=== PATIENT | male | born 1980 | race Caucasian/White ===

== ENCOUNTER 2018-01-03 09:44 | Emergency (ER) | payer OTHER, SELFPAY ==
[2018-01-03 09:45] VITALS: BP 157/73; PULSE 72; RESP 16; TEMP 35.6; BMI 46.8
--- NOTE | 2018-01-03 10:00 | ED.DCSUM_ITS ---
- ER Visit Summary Date of Service: 01/03/18 Chief Complaint: Flank pain History of Present Illness: The patient is a 37 M who presents with right-sided flank pain. Patient states he has a history of kidney stones. Is seen Dr. Pisano in the past. 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 He states that he has had several waves of pain but the pain currently is tolerable. Notes nausea but no vomiting. He describes the pain as sharp stabbing and very similar to prior any stones. His never required surgery to pass the stones. No recent fevers. No known kidney disease. Physical Examination: Afebrile vital signs are stable Gen: Well-nourished well-developed Head: Normocephalic atraumatic Eyes: Perrl EOMI ENT: TMs clear no rhinorrhea moist mucous membranes Neck: Supple no lymphadenopathy no JVD nontender CVS: Regular rate rhythm no murmurs normal S1-S2 Respiratory: No distress clear to auscultation bilaterally chest nontender Abdomen: Soft nontender nondistended normal bowel sounds no masses Back: Nontender Extremity: Nontender no edema Skin: Normal color no rash Neuro: alert orientated ?3 CN II-XII intact normal strength sensation reflexes gait cerebellar Psych: Normal affect normal mood Test Results: CT of the abdomen pelvis without contrast and a urinalysis was obtained. Demonstrated a stone most likely in the bladder as the patient is pain-free. Incidental findings were discussed with the patient such as cholelithiasis and pulmonary nodule. Emergency Department Course and Treatment: Patient received Toradol. The patient will be referred to primary care for follow-up on the incidental findings. Impression: 1. Right ureterolithiasis with renal colic 2. Cholelithiasis 3. Pulmonary nodule This note was generated with [employer] dictation software. It may contain incorrect words, spelling, and punctuation that were not noted in review of the chart prior to signing ED Disposition - Plan for ED Patient: Disposition: Home or Assisted Living Chief Complaint: Flank Pain Instructions: ED Stone Renal Passed, ED Nodule Solitary Pulmonary Referrals: Devin Thompson DO [Primary Care Provider] - 1-2 Weeks
[2018-01-03] MEDS: Ketorolac 30 MG/ML Syringe IV (10:21)
--- NOTE | 2018-01-03 10:26 | CT_ITS ---
STUDY: CT ABDOMEN AND PELVIS WITHOUT CONTRAST REASON FOR EXAM: Male, 37 years old. Right flank pain. History of kidney stones. RADIATION DOSAGE (If Supplied By Facility): CTDIvol = ( 34.45 ) mGy, DLP = ( 1979.87 ) mGycm TECHNIQUE: Transaxial images were obtained from the dome of the diaphragm to the symphysis pubis without oral contrast, and without intravenous contrast. Sagittal and coronal images were reconstructed. Individualized dose optimization techniques were used for this CT. COMPARISON: March 16, 2014. FINDINGS: There is an incompletely imaged, 2 mm, noncalcified nodule within the right lateral lung base seen best currently on sequence 2, image 1. The visualized portions of the heart are within normal limits. There is diffuse decreased hepatic attenuation without CT evident mass or cyst. There is a 5 mm calculi within the dependent gallbladder lumen. There is no para cholecystic fluid. There is no gallbladder wall thickening. Intrahepatic and extra hepatic bile ducts appear unremarkable. Normal spleen. Normal pancreas. Normal bilateral adrenal glands. There are 2, less than 2 mm calculi within the collecting system of the right renal lower pole. There are also 2 punctate calculi both measuring less than 2 mm within the collecting system of the left renal lower pole. There is no hydronephrosis. There is no perinephric stranding or inflammatory change. There is a 2.7 mm calculi within the right posterior urinary bladder versus within the right UVJ seen best on sequence 2, image 174. Thick walled urinary bladder diffusely is most likely real estate representative of artifact of nondistention. There is no hydroureter. Normal visualized stomach. Normal small intestine. Normal colon. The appendix is visualized and appears normal. Normal abdominal aorta. Normal inferior vena cava. Normal retroperitoneum. Normal abdominal wall. Normal osseous structures. CT/Abdomen/Pelvis without Cont IMPRESSION: Bilateral nonobstructing nephrolithiasis. Nonspecific, 2 mm noncalcified nodule within the right lower lobe. Recommend follow-up in accordance with Fleischner Society recommendations and criteria. 2.7 mm calculi within the proximal urinary bladder versus within the distalmost right UVJ, nonobstructing. Diffuse urinary bladder wall thickening, likely real estate representative of artifact of nondistention. Cholelithiasis without CT evidence of cholecystitis. Calcified mesenteric lymph node seen on sequence 2, image 148. This finding is usually of no clinical concern. Electronically Signed: Alfonso Mack MD at 11:10 EDT , Service support ,
[2018-01-03 10:38] LABS: Bacteria 0 SEEN /hpf (None Seen)
[2018-01-03 10:44] LABS: Color, Urine Yellow (Yellow); Glucose, Dipstick 250 mg/dl (Normal); Ketone-Dipstick Negative (Negative); Leukocyte Esterase-Dipstick 25 /ul (Negative); Nitrite-Dipstick Negative (Negative); Occult Blood-Urine 250 /ul (Negative); Protein-Dipstick 30 mg/dl (Negative); Urine Bilirubin Dipstick Negative (Negative); Urine Clarity Clear (Clear); Urine Urobilinogen Normal (Normal)
[2018-01-03 10:57] LABS: Red Blood Cells-Urine 5-10 SEEN /hpf (0-5); White Blood Cells 0-5 SEEN /hpf (0-5)
[2018-01-03 10:58] LABS: Mucous, Urine 3+ /hpf (<or=2+); Squamous Epithelial Cells - UA 0-5 SEEN /hpf (0-5)
[2018-01-03 11:30] VITALS: BP 127/68; PULSE 60; RESP 18; O2SAT 96
== END 2018-01-03 11:32 | disposition home or self-care (01) ==
PROVIDERS: Emergency Provider Emergency Medicine; Family Provider Student in an Organized Health Care Education/Training Program; PCP Student in an Organized Health Care Education/Training Program
DX: N20.2 Calculus of kidney with calculus of ureter (principal); K80.20 Calculus of gallbladder without cholecystitis without obstruction; R91.1 Solitary pulmonary nodule; Z87.442 Personal history of urinary calculi
CPT/HCPCS: 74176; 81001; 96374; 99283; A4216

== ENCOUNTER 2018-10-19 20:04 | Emergency (ER) | payer OTHER, SELFPAY ==
[2018-10-19 20:05] VITALS: BP 163/90; PULSE 88; RESP 16; TEMP 36.6; O2SAT 96; BMI 48.1
[2018-10-19 20:19] VITALS: BP 156/75; PULSE 81; RESP 15; O2SAT 95
--- NOTE | 2018-10-19 20:23 | CT_ITS ---
STUDY: CT FACIAL BONES WITHOUT CONTRAST REASON FOR EXAM: Male, 38 years old. Fall. Bruising. RADIATION DOSAGE (If Supplied By Facility): CTDIvol = ( 29.38 ) mGy, DLP = ( 642.95 ) mGycm TECHNIQUE: The patient was scanned in a multi detector CT scanner. Sagittal and coronal images were reconstructed. Individualized dose optimization techniques were used for this CT. COMPARISON: None. FINDINGS: Nonspecific soft tissue swelling is seen of the left face and around the left orbit. No focal soft tissue hematoma is seen. Normal orbital cruz and orbital contents. Normal nasal bones and anterior nasal spine. Normal facial bones. There is no demonstrated fracture. Normal visualized paranasal sinuses. CT/Sinus/Facial Bone IMPRESSION: No facial fractures are seen. Electronically Signed: Demond Sexton MD at 21:47 EST , Service support ,
--- NOTE | 2018-10-19 20:23 | EKG12_ITS ---
Test Reason : SYNCOPE Blood Pressure : / mmHG Vent. Rate : 086 BPM Atrial Rate : 086 BPM P-R Int : 136 ms QRS Dur : 112 ms QT Int : 408 ms P-R-T Axes : 057 -13 068 degrees QTc Int : 488 ms Normal sinus rhythm with sinus arrhythmia Rwspe-Wzerzsksa-Cxulm Abnormal ECG Confirmed by DESIREE RAMOS, SHERICE ([id number]), greeting card editor ETHEL HANSEN ([id number]) on 10/22/2018 8:23:57 AM Referred By: ABELARDO Confirmed By:SHERICE RAMÍREZ MD
--- NOTE | 2018-10-19 20:23 | CT_ITS ---
STUDY: CT BRAIN WITHOUT CONTRAST REASON FOR EXAM: Male, 38 years old. Fall. Bruising. RADIATION DOSAGE (If Supplied By Facility): CTDIvol = ( 44.99 ) mGy, DLP = ( 812.98 ) mGycm TECHNIQUE: Transaxial CT imaging of the brain was performed without administration of intravenous contrast material. Individualized dose optimization techniques were used for this CT. COMPARISON: None. FINDINGS: Normal soft tissue structures. Normal calvarium. Normal size ventricles and extra-axial spaces for the patient's age. Normal white matter tracts of the cerebral hemispheres. Normal basal ganglia and thalami. Normal brainstem. Normal cerebellum. There is no intracranial hemorrhage. There are no findings of an acute ischemic infarction. Normal visualized paranasal sinuses. CT/Brain/Head without Contrast IMPRESSION: Normal unenhanced CT scan of the brain. Electronically Signed: Demond Sexton MD at 21:44 EST , Service support ,
--- NOTE | 2018-10-19 20:23 | RAD_ITS ---
STUDY: X-RAY CHEST REASON FOR EXAM: Male, 38 years old. Chest pain and cough TECHNIQUE: Single AP portable view of the chest. COMPARISON: None. FINDINGS: The lungs are clear and expanded. There is no demonstrated pleural abnormality. Normal size heart. Normal mediastinum and avinash. Normal visualized pulmonary arteries. Normal visualized aortic arch and descending thoracic aorta. Normal visualized thoracic spine. Normal visualized ribs, clavicles, and shoulders. There is no demonstrated abnormality of the visualized soft tissue structures of the upper abdomen. RAD/Chest 1 View (Portable) IMPRESSION: Normal x-ray examination of the chest. Electronically Signed: Demond Sexton MD at 21:36 EST , Service support ,
[2018-10-19 20:34] VITALS: O2SAT 94
[2018-10-19 20:52] LABS: Absolute Lymphocyte Count 1.08 X10^3/ul (0.83-4.51); Absolute Neutrophil Count 7.9 X10^3/uL (2.0-7.7); Basophil# 0.05 X10^3/uL; Basophil% 0.5 % (0-1); Eosinophil# 0.07 X10^3/uL; Eosinophils% 0.7 % (0-5); Hematocrit 41.5 % (40-54); Hemoglobin 14.4 g/dl (13.0-16.5); Lymphocyte # 1.08 X10^3/ul (4.0); Lymphocyte % 11.3 % (19-41); Mean Corp Hgb Conc 34.7 g/gl (32-36); Mean Corpuscular Hgb 29.2 pg (27.0-32.0); Mean Corpuscular Volume 84.2 fL (80-94); Mean Platelet Vol. 9.7 fl (6.2-12.0); Monocyte% 4.2 % (0-10); Neutrophil # 7.93 X10^3/uL (2.7-7.7); Neutrophil % 82.9 % (47-70); POSITIVE COUNT NO; POSITIVE DIFFERENTIAL NO; POSITIVE MORPHOLOGY NO; Platelet Count 290 K/mm3 (150-450); RBC Distribution Width CV 12.7 % (11.6-14.6); RBC Distribution Width SD 38.7 fl (35.1-43.9); Red Blood Count 4.93 M/mm3 (4.6-6.2); White Blood Count 9.6 K/mm3 (4.4-11.0)
[2018-10-19 21:06] LABS: Anion Gap 9 (5-15); BUN 11 mg/dL (7-18); BUN/Creat Ratio 10.2 RATIO (10-20); Calcium,Total 8.4 mg/dL (8.5-10.1); Chloride 103 mmol/L (98-107); Creatinine, Serum 1.08 mg/dL (0.70-1.30); EST Glomerular Filtration Rate 80 mL/min (>60); Est Glom Filt Rate - Afr Amer 97 mL/min (>60); Estimated Creatinine Clearance 102.75 ml/min; Glucose 313 mg/dL (74-106); Potassium 4.2 mmol/L (3.5-5.1); Sodium Level 135 mmol/L (136-145)
[2018-10-19 21:47] VITALS: BP 158/97; PULSE 78; RESP 14; O2SAT 95
[2018-10-19 22:21] VITALS: BP 154/96; PULSE 68; RESP 16; O2SAT 94
[2018-10-19 23:02] VITALS: BP 146/90; PULSE 79; RESP 14; O2SAT 96
--- NOTE | 2018-10-19 23:31 | ED.VISSUMM ---
- ER Visit Summary Date of Service: 10/19/18 Chief Complaint: Passed out History of Present Illness: The patient is a 38 M who had a syncopal episode today. This came on suddenly after a fit of coughing. He had a viral infection has a persistent cough for 3 weeks. He has been trying wzwe-fuj-tlmhqex remedies. He felt tonight, striking his left face. No history of syncope. No chest pain. No history of PE or coronary disease. No history of aortic disease. No abdominal symptoms or bleeding. No weakness or numbness. No facial droop or speech changes. Physical Examination: Afebrile and vital signs unremarkable. Left face contusion. Otherwise HEENT exam unremarkable. Neck is nontender. Heart regular. Lungs clear. Abdomen soft. No focal neurologic abnormalities grossly. Test Results: EKG showed sinus rhythm at a rate of 86 with morphology concerning for WPW. Labs and troponin unremarkable except for a glucose of 313. CT face and brain normal. Chest x-ray unremarkable. Emergency Department Course and Treatment: Patient's EKG was concerning for WPW, but he had a normal AL interval. Patient was discussed with cardiology here who advised that this could well be WPW and recommended evaluation by an director of occupational therapy. I spoke with Dr. Mills (sp?) At [facility] who also felt that this could reflect WPW and he recommended further evaluation. I spoke with Dr. Baeza who will accept the patient. Treatment Plan: As above Disposition: Transfer to [facility] Impression: 1. Syncope 2. WPW 3. Hyperglycemia (new onset diabetes) 4. Facial contusion This note was generated with [employer] dictation software. It may contain incorrect words, spelling, and punctuation that were not noted in review of the chart prior to signing ED Disposition - Plan for ED Patient: Referrals: Devin Thompson DO [Primary Care Provider] -
--- NOTE | 2018-10-19 23:34 | ED.DCSUM_ITS ---
- ER Visit Summary Date of Service: 10/19/18 Chief Complaint: Passed out History of Present Illness: The patient is a 38 M who had a syncopal episode today. This came on suddenly after a fit of coughing. He had a viral infection has a persistent cough for 3 weeks. He has been trying qept-lex-ntarjpa rylie dies. He felt tonight, striking his left face. No history of syncope. No chest pain. No history of PE or coronary disease. No history of aortic disease. No abdominal symptoms or bleeding. No weakness or numbness. No facial droop or speech changes. Physical Examination: Afebrile and vital signs unremarkable. Left face contusion. Otherwise HEENT exam unremarkable. Neck is nontender. Heart regular. Lungs clear. Abdomen soft. No focal neurologic abnormalities grossly. Test Results: EKG showed sinus rhythm at a rate of 86 with morphology concerning for WPW. Labs and troponin unremarkable except for a glucose of 313. CT face and brain normal. Chest x-ray unremarkable. Emergency Department Course and Treatment: Patient's EKG was concerning for WPW, but he had a normal RI interval. Patient was discussed with cardiology here who advised that this could well be WPW and recommended evaluation by an asbestos worker. I spoke with Dr. Mills (sp?) At [facility] who also felt that this could reflect WPW and he recommended further evaluation. I spoke with Dr. Baeza who will accept the patient. Treatment Plan: As above Disposition: Transfer to [facility] Impression: 1. Syncope 2. WPW 3. Hyperglycemia (new onset diabetes) 4. Facial contusion This note was generated with [employer] dictation software. It may contain incorrect words, spelling, and punctuation that were not noted in review of the chart prio r to signing ED Disposition - Plan for ED Patient: Referrals: Devin Thompson DO [Primary Care Provider] -
[2018-10-20 00:56] VITALS: BP 161/110; PULSE 69; RESP 18; O2SAT 94
--- NOTE | 2018-10-20 00:59 | ED.RN ---
REPORT GIVEN TO [facility]W
== END 2018-10-20 01:18 | disposition short-term general hospital (02) ==
LOC: ED 20:44
PROVIDERS: Emergency Provider Emergency Medicine; Family Provider Student in an Organized Health Care Education/Training Program; PCP Student in an Organized Health Care Education/Training Program
DX: R55 Syncope and collapse (principal); I45.6 Pre-excitation syndrome; E11.65 Type 2 diabetes mellitus with hyperglycemia; S00.83XA Contusion of other part of head, initial encounter; W19.XXXA Unspecified fall, initial encounter; Y93.9 Activity, unspecified; Y92.9 Unspecified place or not applicable; R05 Cough; J45.909 Unspecified asthma, uncomplicated
CPT/HCPCS: 70450; 70486; 71045; 80048; 84484; 85025; 93005; 99285; A4216